=== PATIENT | male | born 1975 | race African-American/Black ===

== ENCOUNTER 2017-07-29 07:42 | Day surgery (SDC) | payer BC ==
[2017-07-28 14:36] VITALS: BMI 40.1
[~2017-07-29 07:42] MED LIST: Cyclopentolate 1% Opth Drop 2 ML BOT FS SCH; Fluorouracil 100 MG, EPINEPHrine 0.3 MG, Dextrose 50% 3 ML in Ophthalmic Irrigation Sol... IVPB SCH; Phenylephrine HCl 2.5% Ophth Soln 5 ML BOT FS SCH
[2017-07-29] MEDS ORDERED: Phenylephrine HCl 2.5% Ophth Soln 5 ML BOT ONE (08:48)
[2017-07-29] MEDS ORDERED: Cyclopentolate 1% Opth Drop 2 ML BOT ONE (08:48)
[2017-07-29] MEDS ORDERED: Midazolam HCl 2 mg/2 ml Vial ONE ×2 (11:56→11:58)
[2017-07-29] MEDS ORDERED: Fentanyl 100 MCG/2 ML VIAL ONE ×2 (11:56→11:58)
[2017-07-29] MEDS ORDERED: PHENYLEPHRINE-NS 100 MCG/ML 10 ML SYRINGE ONE (12:17)
[2017-07-29] MEDS ORDERED: Glycopyrrolate 0.2 MG/ML 5 ML SYRINGE ONE (12:17)
[2017-07-29] MEDS ORDERED: Lidocaine 2% PF 10 ML AMP (For Epidural Use) ONE (12:17)
[2017-07-29] MEDS ORDERED: Propofol 200 MG/20 ML VIAL ONE (12:17)
[2017-07-29] MEDS ORDERED: ePHEDrine/0.9% NaCl/PF SYRINGE 50 mg/10 ml ONE (12:17)
[2017-07-29] MEDS ORDERED: Ondansetron HCl/PF 4 MG/2 ML Vial ONE (12:17)
[2017-07-29] MEDS ORDERED: Succinylcholine Chloride 20 MG/ML 10 ml SYRINGE FS ONE (12:17)
--- NOTE | 2017-07-30 07:40 | OP ---
DATE OF PROCEDURE: 07/29/2017 PREOPERATIVE DIAGNOSIS: Tractional retinal detachment, left eye. POSTOPERATIVE DIAGNOSIS: Tractional retinal detachment, left eye. PROCEDURES PERFORMED: Pars plana vitrectomy, tractional retinal detachment repair, left eye. SURGEON: Clyde Yeh M.D. ANESTHESIA: General endotracheal anesthesia. COMPLICATIONS: None. PROCEDURE IN DETAIL: The patient was identified in the preoperative holding area. Appropriate info rmed consent for the planned surgical procedure on the left eye had been obtained. The patient was transported to the operative suite where appropriate cardiopulmonary monitoring was established. Ge neral endotracheal anesthesia was initiated. Local anesthesia was obtained using retrobulbar block. The 25-gauge trocars were placed in conjunctiva and sclera supratemporally, inferotemporally, and supranasally. Infusion line was placed inferotemporally. Light pipe and vitreous cutter were inser megan into the eye. Silicone oil was noted to be present. The 20-gauge sclerotomy was created superi or temporally and the silicone oil was removed, significant areas of epiretinal, subretinal plaquing was present. 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 Peripheral retinectomy was created and the retina was everted and significant amount of subretinal fibrosis wer e removed. Many areas of subretinal fibrosis were attached to the retina preventing dissection. Th e retina was flattened and the indirect laser was placed on all peripheral areas of the retina. Caroline icone oil was infused into the eye. Again, the sclerotomy was suture closed with 7-0 Vicryl suture. Conjunctiva was closed with 6-0 plain gut suture. Retrobulbar Kenalog and subconjunctival Ancef w ere placed. Atropine and antibiotic ointment were placed and the eye was patched and shielded. The patient was taken to the postoperative recovery unit in good condition having suffered no immediate perioperative complications. DISCHARGE INSTRUCTIONS: The patient was instructed to keep patch and shield on, avoid flat on back positioning, and follow up in the morning with Dr. Yeh.
== END 2017-07-29 15:35 | disposition home or self-care (01) ==
LOC: SDC 07:42
PROVIDERS: ATTEND Ophthalmology Retina Specialist
PROC: 08T53ZZ Resection of Left Vitreous, Percutaneous Approach (ICD-10-PCS; principal; 2017-07-29)
DX: H33.42 Traction detachment of retina, left eye (principal); I10 Essential (primary) hypertension; G62.9 Polyneuropathy, unspecified; E66.9 Obesity, unspecified; Z68.41 Body mass index [BMI] 40.0-44.9, adult; Z79.84 Long term (current) use of oral hypoglycemic drugs; Z79.4 Long term (current) use of insulin; Z79.82 Long term (current) use of aspirin; Z79.899 Other long term (current) drug therapy; Z88.1 Allergy status to other antibiotic agents; Z88.0 Allergy status to penicillin
CPT/HCPCS: 36416; C1814; J0171; J2001; J2250; J2405; J2704; J3010; J9190